=== PATIENT | female | born 1990 | race Caucasian/White ===

== ENCOUNTER 2017-05-24 08:06 | Emergency (ER) | payer MEDICAID ==
[~2017-05-24] VITALS: Ht 165.1 cm; Wt 59.0 kg
[2017-05-24 08:11] VITALS: BP 100/73
[2017-05-24] MEDS ORDERED: GENTAMICIN SU3 MG/ML OPHTHALMIC (08:18)
== END 2017-05-24 08:24 | disposition home or self-care (01) ==
LOC: M.ERS 08:06
DX: B30.9 Viral conjunctivitis, unspecified (principal); Z88.0 Allergy status to penicillin